=== PATIENT | male | born 1935 | race Caucasian/White ===

== ENCOUNTER 2021-04-19 19:14 | Inpatient (IN) ==
[2021-04-19 20:34] LABS: Albumin 4.4 g/dL (3.5-5.7); Albumin/Globulin Ratio 1.6 (1.1-2.2); Bilirubin,Direct 0.1 mg/dL (0.0-0.2); Bilirubin,Indirect 1.3 mg/dL (0.0-1.0); Bilirubin,Total 1.4 mg/dL (0.3-1.0); Calcium 8.9 mg/dL (8.6-10.3); Globulin 2.7 g/dL (2.4-3.5); Potassium 4.7 mEq/L (3.5-5.1); Total Protein 7.1 g/dL (6.4-8.9); Troponin I 0.03 ng/mL (< 0.04)
[2021-04-19 20:38] LABS: Basophils # 0.1 K/mcL (0.0-0.2); Basophils % 1.1 %; Eosinophils # 0.4 K/mcL (0.0-0.6); Eosinophils % 4.9 %; Hematocrit 45.9 % (37.5-50.1); Hemoglobin 14.8 g/dL (12.9-16.9); Immature Granulocytes % 0.4 % (0-4); Lymphocytes # 1.7 K/mcL (0.6-4.6); Lymphocytes % 21.3 %; Mean Corpuscular HGB Conc 32.2 g/dL (31.6-35.5); Mean Corpuscular Hemoglobin 29.5 pg (28.0-33.3); Mean Corpuscular Volume 91.6 fL (83.0-100.0); Mean Platelet Volume 10.1 fL (9.4-12.4); Monocytes # 0.8 K/mcL (0.0-1.3); Monocytes % 9.7 %; Platelet Count 160 K/mcL (140-400); Red Blood Count 5.01 M/mcL (4.19-5.50); Red Cell Distribution Width 14.9 % (11.5-14.5); Segmented Neutrophils % 62.6 %
[2021-04-19 20:54] LABS: Influenza A PCR Negative (Negative); Influenza B PCR Negative (Negative); Resp. Syncytial Virus PCR Negative (Negative)
[2021-04-19 20:55] LABS: SARS-CoV-2 by PCR (In House) Negative (Negative)
[2021-04-19 21:14] LABS: INR 1.1; Prothrombin Time 12.2 Seconds (9.4-12.1)
[2021-04-19 21:17] LABS: Activated Partial Thrombo Time 30.7 Seconds (26.0-36.0)
[2021-04-19] MEDS ORDERED: Furosemide 40 MG/4 ML VIAL IVP ONE (21:50)
[2021-04-20] MEDS ORDERED: *HR* HYDROcodone/Acet 5/325 mg TABLET PO PRN (00:10)
[2021-04-20] MEDS ORDERED: Naloxone 0.4 MG/ML INJ IVP PRN (00:10)
[2021-04-20] MEDS ORDERED: Ondansetron ODT 4 MG TAB.RAPDIS SL PRN (00:10)
[2021-04-20] MEDS ORDERED: *HR* OxyCODONE Immed Rel 5 MG TABLET PO PRN (00:10)
[2021-04-20] MEDS ORDERED: Acetaminophen 325 MG TABLET PO PRN (00:10)
[2021-04-20] MEDS ORDERED: Melatonin 3 MG TABLET PO PRN (00:10)
[2021-04-20 00:40] LABS: Adenovirus Not Detected (Not Detect); Coronavirus 229E Not Detected (Not Detect); Coronavirus HKU1 Not Detected (Not Detect); Coronavirus NL63 Not Detected (Not Detect); Coronavirus OC43 Not Detected (Not Detect); Human Metapneumovirus Not Detected (Not Detect); Human Rhinovirus/Enterovirus Not Detected (Not Detect); SARS-CoV-2 Not Detected (Not Detect)
[2021-04-20 00:41] LABS: Bordetella Pertussis Not Detected (Not Detect); Chlamydophila pneumoniae Not Detected (Not Detect); Influenza A Subtype 2009 H1 Not Detected (Not Detect); Influenza B Not Detected (Not Detect); Mycoplasma pneumoniae Not Detected (Not Detect); Parainfluenza Virus 1 Not Detected (Not Detect); Parainfluenza Virus 2 Not Detected (Not Detect); Parainfluenza Virus 3 Not Detected (Not Detect); Parainfluenza Virus 4 Not Detected (Not Detect); Respiratory Syncytial Virus Not Detected (Not Detect)
[2021-04-20 03:16] LABS: Basophils # 0.1 K/mcL (0.0-0.2); Eosinophils # 0.4 K/mcL (0.0-0.6); Eosinophils % 5.1 %; Hematocrit 48.6 % (37.5-50.1); Hemoglobin 15.5 g/dL (12.9-16.9); Immature Granulocytes % 0.4 % (0-4); Lymphocytes % 25.6 %; Mean Corpuscular HGB Conc 31.9 g/dL (31.6-35.5); Mean Corpuscular Hemoglobin 29.5 pg (28.0-33.3); Mean Corpuscular Volume 92.6 fL (83.0-100.0); Mean Platelet Volume 10.7 fL (9.4-12.4); Monocytes # 0.7 K/mcL (0.0-1.3); Monocytes % 8.8 %; Neutrophils # 4.6 K/mcL (1.6-8.9); Platelet Count 191 K/mcL (140-400); Red Blood Count 5.25 M/mcL (4.19-5.50); Red Cell Distribution Width 14.6 % (11.5-14.5); Segmented Neutrophils % 59.1 %; White Blood Count 7.9 K/mcL (4.3-11.1)
[2021-04-20 03:35] LABS: Potassium 4.1 mEq/L (3.5-5.1)
[2021-04-20] MEDS ORDERED: Perflutren Lipid Microsphere 1.3 ML in 0.9 % Sodium Chloride 8.7 ML IVP PRN (07:38)
[2021-04-20] MEDS ORDERED: Furosemide 20 MG/2 ML VIAL IVP ONE (09:00)
[2021-04-20 09:02] LABS: Basophils # 0.1 K/mcL (0.0-0.2); Basophils % 0.8 %; Eosinophils # 0.5 K/mcL (0.0-0.6); Eosinophils % 5.4 %; Hematocrit 47.3 % (37.5-50.1); Hemoglobin 15.4 g/dL (12.9-16.9); Immature Granulocytes % 0.3 % (0-4); Lymphocytes % 23.3 %; Mean Corpuscular HGB Conc 32.6 g/dL (31.6-35.5); Mean Corpuscular Hemoglobin 29.9 pg (28.0-33.3); Mean Corpuscular Volume 91.8 fL (83.0-100.0); Mean Platelet Volume 10.7 fL (9.4-12.4); Monocytes # 0.8 K/mcL (0.0-1.3); Neutrophils # 5.3 K/mcL (1.6-8.9); Platelet Count 184 K/mcL (140-400); Red Blood Count 5.15 M/mcL (4.19-5.50); Red Cell Distribution Width 14.6 % (11.5-14.5); Segmented Neutrophils % 61.2 %; White Blood Count 8.6 K/mcL (4.3-11.1)
[2021-04-20] MEDS: Metoprolol XL (24 HR) Succ 50 MG TAB.ER.24H PO SCH (09:17)
[2021-04-20] MEDS: Furosemide 40 MG TABLET PO SCH (09:17)
[2021-04-20] MEDS: Spironolactone 25 MG TABLET PO SCH (09:17)
[2021-04-20] MEDS: Aspirin 81 MG TAB.CHEW PO SCH (09:17)
[2021-04-20] MEDS: Azithromycin 500 MG in 0.9 % Sodium Chloride 250 ML IVPB SCH (09:18)
[2021-04-20] MEDS: cefTRIAXone 1,000 MG in 0.9 % Sodium Chloride Mini Bag 100 ML IVPB SCH (10:30)
[2021-04-20 17:19] LABS: Basophils # 0.1 K/mcL (0.0-0.2); Basophils % 1.1 %; Eosinophils # 0.5 K/mcL (0.0-0.6); Eosinophils % 5.8 %; Hematocrit 50.1 % (37.5-50.1); Hemoglobin 15.8 g/dL (12.9-16.9); Immature Granulocytes % 0.4 % (0-4); Lymphocytes # 2.1 K/mcL (0.6-4.6); Lymphocytes % 24.6 %; Mean Corpuscular HGB Conc 31.5 g/dL (31.6-35.5); Mean Corpuscular Hemoglobin 29.4 pg (28.0-33.3); Mean Corpuscular Volume 93.1 fL (83.0-100.0); Monocytes # 0.8 K/mcL (0.0-1.3); Monocytes % 9.1 %; Platelet Count 190 K/mcL (140-400); Red Blood Count 5.38 M/mcL (4.19-5.50); Red Cell Distribution Width 14.7 % (11.5-14.5); White Blood Count 8.5 K/mcL (4.3-11.1)
[2021-04-20] MEDS: predniSONE 20 MG TABLET PO SCH (18:03)
[2021-04-21 04:13] LABS: Calcium 8.9 mg/dL (8.6-10.3); Potassium 5.2 mEq/L (3.5-5.1)
[2021-04-21] MEDS: *HR* Enoxaparin 40 MG/0.4 ML SYRINGE SQ SCH (05:17)
[2021-04-21] MEDS: Metoprolol XL (24 HR) Succ 50 MG TAB.ER.24H PO SCH (07:31)
[2021-04-21] MEDS: Aspirin 81 MG TAB.CHEW PO SCH (07:31)
[2021-04-21] MEDS: Furosemide 40 MG TABLET PO SCH (07:32)
[2021-04-21] MEDS: predniSONE 20 MG TABLET PO SCH (07:32)
[2021-04-21] MEDS: Spironolactone 25 MG TABLET PO SCH (07:32)
[2021-04-21] MEDS: Azithromycin 500 MG in 0.9 % Sodium Chloride 250 ML IVPB SCH (07:33)
[2021-04-21] MEDS: cefTRIAXone 1,000 MG in 0.9 % Sodium Chloride Mini Bag 100 ML IVPB SCH (12:37)
[2021-04-22] MEDS: *HR* Enoxaparin 40 MG/0.4 ML SYRINGE SQ SCH (05:08)
[2021-04-22] MEDS: predniSONE 20 MG TABLET PO SCH (09:08)
[2021-04-22] MEDS: Furosemide 40 MG TABLET PO SCH (09:08)
[2021-04-22] MEDS: Metoprolol XL (24 HR) Succ 50 MG TAB.ER.24H PO SCH (09:08)
[2021-04-22] MEDS: Azithromycin 500 MG in 0.9 % Sodium Chloride 250 ML IVPB SCH (09:09)
[2021-04-22] MEDS: cefTRIAXone 1,000 MG in 0.9 % Sodium Chloride Mini Bag 100 ML IVPB SCH (09:09)
[2021-04-22] MEDS: Aspirin 81 MG TAB.CHEW PO SCH (09:09)
[2021-04-22] MEDS ORDERED: *HR* Heparin 5,000 UNIT/ML VIAL IVP ONE (09:38)
[2021-04-22] MEDS ORDERED: *HR* Heparin 5,000 UNIT/ML VIAL IVP PRN ×2 (09:38)
[2021-04-22] MEDS ORDERED: Heparin 25,000UNIT/250ML 1/2NS 25,000 UNIT/250 ML IV.SOLN IVC SCH (09:45)
[2021-04-22] MEDS ORDERED: Heparin 25,000 UNIT/250 ML 25,000 UNIT/250 ML IV.SOLN IVC SCH ×2 (10:15→17:15)
[2021-04-22 11:20] LABS: Hematocrit 46.5 % (37.5-50.1); Hemoglobin 15.1 g/dL (12.9-16.9); Mean Corpuscular HGB Conc 32.5 g/dL (31.6-35.5); Mean Corpuscular Hemoglobin 30.1 pg (28.0-33.3); Mean Corpuscular Volume 92.6 fL (83.0-100.0); Mean Platelet Volume 11.1 fL (9.4-12.4); Platelet Count 197 K/mcL (140-400); Red Blood Count 5.02 M/mcL (4.19-5.50); Red Cell Distribution Width 14.8 % (11.5-14.5); White Blood Count 11.4 K/mcL (4.3-11.1)
[2021-04-22 11:30] LABS: Prothrombin Time 11.6 Seconds (9.4-12.1)
[2021-04-22 12:04] LABS: Heparin anti-factor XA UFH 0.39 IU/mL (0.30-0.70)
[2021-04-23] MEDS: cefTRIAXone 1,000 MG in 0.9 % Sodium Chloride Mini Bag 100 ML IVPB SCH (07:38)
[2021-04-23] MEDS: predniSONE 20 MG TABLET PO SCH (07:47)
[2021-04-23] MEDS: Aspirin 81 MG TAB.CHEW PO SCH (07:48)
[2021-04-23] MEDS: Metoprolol XL (24 HR) Succ 50 MG TAB.ER.24H PO SCH (07:48)
[2021-04-23] MEDS: Furosemide 40 MG TABLET PO SCH (07:48)
[2021-04-23] MEDS: Azithromycin 500 MG in 0.9 % Sodium Chloride 250 ML IVPB SCH (08:24)
[2021-04-23 10:14] VITALS: BP 125/81; PULSE 66; TEMP 97.9; O2SAT 96
[2021-04-23 10:51] LABS: Calcium 9.2 mg/dL (8.6-10.3); Potassium 4.4 mEq/L (3.5-5.1)
[2021-04-23 11:04] LABS: Hematocrit 48.1 % (37.5-50.1); Hemoglobin 15.2 g/dL (12.9-16.9); Mean Corpuscular HGB Conc 31.6 g/dL (31.6-35.5); Mean Corpuscular Hemoglobin 29.6 pg (28.0-33.3); Mean Corpuscular Volume 93.6 fL (83.0-100.0); Mean Platelet Volume 10.9 fL (9.4-12.4); Platelet Count 216 K/mcL (140-400); Red Blood Count 5.14 M/mcL (4.19-5.50); Red Cell Distribution Width 14.7 % (11.5-14.5); White Blood Count 12.7 K/mcL (4.3-11.1)
[2021-04-23] MEDS ORDERED: Apixaban 5 MG TABLET PO SCH (11:30)
== END 2021-04-23 16:25 | disposition home or self-care (01) | DRG 193 ==
LOC: 3BNU 19:14 → EMEROOARM 19:14 → SUATTDRO 23:19 → 3BNU 23:40
PROVIDERS: ADMIT Internal Medicine; ATTEND Registered Nurse